=== PATIENT | female | born 1990 | race Two or more races ===

== ENCOUNTER 2022-08-21 16:50 | Inpatient (IN) | payer MEDICAID, OTHER ==
[~2022-08-21] VITALS: Ht 154.9 cm; Wt 81.6 kg
[2022-08-21] MEDS ORDERED: MAGNESIUM SULFATE 0 ML IV ONE (17:02)
[2022-08-21] MEDS ORDERED: MAGNESIUM SULFATE 40MG/ML 0 ML IV ONE (17:03)
[2022-08-21] MEDS ORDERED: LIDOCAINE 2%HCL (LOCAL ANESTH.) INJ 20ML MDV ONE (17:20)
[2022-08-21] MEDS ORDERED: LACTATED RINGER'S 1,000 ML IV SCH (17:30)
[2022-08-21] MEDS ORDERED: hydrALAZINE HCL 20 MG/ML VL IV ONE (17:30)
[2022-08-21] MEDS ORDERED: PHISODERM TOP SOLN 240ML BTL TOP PRN (17:30)
[2022-08-21] MEDS ORDERED: DERMOPLAST 60ML BOTTLE TOP PRN (17:30)
[2022-08-21] MEDS ORDERED: miSOPROStol 100 mcg TAB PR PRN (17:30)
[2022-08-21] MEDS ORDERED: LIDOCAINE 2%HCL (LOCAL ANESTH.) INJ 20ML MDV IJ PRN (17:30)
[2022-08-21] MEDS ORDERED: WITCH HAZEL-GLYCERIN PAD TOP PRN (17:30)
[2022-08-21] MEDS ORDERED: hydrALAZINE HCL 20 MG/ML VL ONE (17:40)
[2022-08-21] MEDS ORDERED: hydrALAZINE HCL 20 MG/ML VL IV PRN (18:00)
[2022-08-21] MEDS ORDERED: LACT. RINGERS/OXYTOCIN 20UNITS 500 ML IV ONE ×2 (18:00→18:30)
[2022-08-21 18:20] LABS: Basophils # (auto) 0.1 10 ^3/uL (0-0.2); Basophils % (auto) 0.3 % (0.0-2.0); Eosinophils # (auto) 0 10 ^3/uL (0-0.8); Hematocrit 37.8 % (36.0-46.0); Hemoglobin 12.7 g/dL (12.2-16.2); Lymphocytes # (auto) 0.8 10 ^3/uL (0.4-5.4); Lymphocytes % (auto) 2.7 % (10.0-50.0); Mean Corpuscular Hemoglobin 29.5 pg (28.0-32.0); Mean Corpuscular Hgb Conc. 33.6 g/dL (32.0-36.0); Mean Corpuscular Volume 87.9 fL (80.0-100.0); Monocytes # (auto) 0.8 10 ^3/uL (0-1.3); Neutrophils # (auto) 26.6 10 ^3/uL (1.6-8.6); Nucleated Red Blood Cells % 0.1 %; Red Cell Distribution Width 13.1 % (11.8-14.3); White Blood Cell 28.2 10^3/uL (4.4-10.8)
[2022-08-21 18:34] LABS: Albumin 2.5 g/dL (3.4-5.0); Calcium 8.6 mg/dL (8.5-10.1); Potassium 4.1 mmol/L (3.5-5.1)
[2022-08-21 18:38] LABS: BUN/Creatinine Ratio 16.4; Bilirubin, Total 0.5 mg/dL (0.2-1.0); Total Protein 6.1 g/dL (6.4-8.2)
[2022-08-21 18:41] LABS: INR 0.89 (0.9-1.15); Partial Thromboplastin Time 28.1 sec (24.6-33.4)
[2022-08-21 18:45] VITALS: BP 170/79
[2022-08-21 18:53] LABS: Urine Bacteria FEW /hpf (None Seen); Urine Blood 3+ /uL (Negative); Urine Mucus FEW (None Seen); Urine Specific Gravity 1.028 (1.001-1.035); Urine WBC 91 /hpf (0 - 5)
[2022-08-21 18:57] LABS: Amphetamine Screen, Urine POSITIVE (NEGATIVE); Barbiturate Scree,Urine NEGATIVE (NEGATIVE); Benzodiazephine Screen, Urine NEGATIVE (NEGATIVE); Cannabinoid Screen, Urine POSITIVE (NEGATIVE); Cocaine Screen, Urine NEGATIVE (NEGATIVE); Opiate Scree,Urine NEGATIVE (NEGATIVE); Phencyclidine Screen, Urine NEGATIVE (NEGATIVE)
[2022-08-21] MEDS: LABETALOL HCL 200 MG TAB PO SCH (19:01)
[2022-08-21] MEDS ORDERED: IBUPROFEN 800 MG TAB PO SCH (19:45)
[2022-08-21] MEDS ORDERED: ONDANSETRON ODT 4 MG TAB PO PRN (19:45)
[2022-08-21] MEDS ORDERED: ceFAZolin 2 GM in D5W 5% 100 ML IV ONE (20:15)
[2022-08-21 21:32] LABS: Protein, Urine 61.3 mg/dL (0.0-11.9)
[2022-08-21] MEDS: DOCUSATE SOD 100 MG CAP PO SCH (22:00)
[2022-08-21 23:00] VITALS: BP 116/63
[2022-08-22 03:00] VITALS: BP 99/57
[2022-08-22] MEDS: ceFAZolin 1GM/50ML 50 ML IV SCH ×4 (05:30→22:10)
[2022-08-22 07:15] VITALS: BP 114/55
[2022-08-22] MEDS ORDERED: IBUPROFEN 800 MG TAB PO PRN (08:00)
[2022-08-22] MEDS: ACETAMINOPHEN 325 MG TAB PO PRN ×2 (08:09→17:08)
[2022-08-22] MEDS: LABETALOL HCL 200 MG TAB PO SCH ×2 (10:59→22:11)
[2022-08-22 11:02] VITALS: BP 123/73
[2022-08-22 15:20] VITALS: BP 114/65
[2022-08-22] MEDS ORDERED: RHO (D) IMMUNE GLOBULIN 300 MCG INJ IM ONE (19:15)
[2022-08-22 19:30] VITALS: BP 116/70
[2022-08-22] MEDS: DOCUSATE SOD 100 MG CAP PO SCH (22:10)
[2022-08-22 23:00] VITALS: BP 121/69
[2022-08-23 03:00] VITALS: BP 117/58
[2022-08-23] MEDS: ceFAZolin 1GM/50ML 50 ML IV SCH (05:45)
[2022-08-23 07:02] VITALS: BP 126/64
[2022-08-23 07:06] LABS: RPR Non Reactive (Non Reactive); Rubella Antibodies, IgG 3.37 index (Immune >0.99)
[2022-08-23 10:53] VITALS: BP 136/74
== END 2022-08-23 11:13 | disposition home or self-care (01) | DRG 560 ==
LOC: OBSVTOIN 16:50 → LDRP 16:50
PROVIDERS: ADMIT Obstetrics & Gynecology; ATTEND Obstetrics & Gynecology
PROC: 10E0XZZ Delivery of Products of Conception, External Approach (ICD-10-PCS; principal; 2022-08-21)
PROC: 0KQM0ZZ Repair Perineum Muscle, Open Approach (ICD-10-PCS; 2022-08-21)
DX: O62.3 Precipitate labor (principal); Z37.0 Single live birth; O34.33 Maternal care for cervical incompetence, third trimester; O60.14X0 Preterm labor third trimester with preterm delivery third trimester, not applicable or unspecified; O99.324 Drug use complicating childbirth; O16.4 Unspecified maternal hypertension, complicating childbirth; O99.344 Other mental disorders complicating childbirth; F12.10 Cannabis abuse, uncomplicated; F15.10 Other stimulant abuse, uncomplicated; O70.1 Second degree perineal laceration during delivery; O26.893 Other specified pregnancy related conditions, third trimester; F43.20 Adjustment disorder, unspecified; Z67.41 Type O blood, Rh negative; Z3A.36 36 weeks gestation of pregnancy; Z20.822 Contact with and (suspected) exposure to COVID-19
CPT/HCPCS: 36415; 59025; 59409; 80053; 80307; 81001; 82570; 84156; 84550; 85025; 85362; 85610; 85730; 86592; 86703; 86762; 86850; 86900; 86901; 87340; 87426; 90384; 94760; 96365; 96372; 96374; 96375; G0378; J0690; J7060